=== PATIENT | female | born 1995 | race Caucasian/White ===

== ENCOUNTER 2017-05-12 16:29 | Emergency (ER) | payer BC ==
[2017-05-12 17:12] VITALS: BP 126/68
--- NOTE | 2017-05-12 17:13 | UC ---
Upper Extremity HPI - HPI Summary HPI Summary: 22 year old female presents with ganglion cysts on both wrists. - History of Current Complaint Chief Complaint: UCUpperExtremity Stated Complaint: LEFT WRIST AND PERSONAL Time Seen by Provider: 05/12/17 17:13 Hx Obtained From: Patient Hx Last Menstrual Period: 04/18/17 ?: Yes Onset/Duration: Sudden Onset Severity Initially: Moderate Severity Currently: Moderate Pain Scale Used: 0-10 Numeric - 5 - Allergies/Home Medications Allergies/Adverse Reactions: Allergies Allergy/AdvReac Type Severity Reaction Status Date / Time No Known Allergies Allergy Verified 05/12/17 17:12 PMH/Surg Hx/FS Hx/Imm Hx Other History Of: Negative For: HIV, Hepatitis B, Hepatitis C, Anticoagulant Therapy - Surgical History Surgical History: Yes Surgery Procedure, Year, and Place: I&D right thigh 2013, 2016 - Family History Known Family History: Positive: Cardiac Disease, Hypertension - Social History Alcohol Use: Occasionally Substance Use Type: None Smoking Status (MU): Never Smoked Tobacco Review of Systems Constitutional: Negative Skin: Negative Eyes: Negative ENT: Negative Respiratory: Negative Cardiovascular: Negative Gastrointestinal: Negative Genitourinary: Negative Motor: Negative Neurovascular: Negative Musculoskeletal: Other: - bilateral wrist ganglion Neurological: Negative Psychological: Negative All Other Systems Reviewed And Are Negative: Yes Physical Exam Triage Information Reviewed: Yes Vital Signs: Initial Vital Signs Temp 36.9 C 05/12/17 17:04 Pulse 86 05/12/17 17:04 Resp 12 05/12/17 17:04 BP 126/68 05/12/17 17:04 Pulse Ox 100 05/12/17 17:04 Vital Signs Reviewed: Yes Eye Exam: Normal ENT Exam: Normal Dental Exam: Normal Neck exam: Normal Neck: Positive: 1 Respiratory Exam: Normal Cardiovascular Exam: Normal Abdominal Exam: Normal Musculoskeletal: Positive: Other: - bilateral ganglion cysts Neurological Exam: Normal Psychological Exam: Normal Skin Exam: Normal Upper Extremity Course/Dx - Differential Dx/Diagnosis Provider Diagnoses: bilateral wrist ganglion cysts Discharge - Discharge Plan Condition: Stable Disposition: HOME Prescriptions: Methylprednisolone [Medrol Dosepak 4 MG*] 4 mg PO .SEE ESAU INSTRUCTION #21 tab Patient Education Materials: Ganglion Cysts (ED) Referrals: Constantino Santillan MD [Medical Doctor] - No Primary Care Phys,NOPCP [Primary Care Provider] -
--- NOTE | 2017-05-12 17:52 | RAD ---
INDICATION: Lump on the RIGHT hand for 1.5 years with pain for one week. COMPARISON: No relevant prior exams available on the [facility] PACS for comparison. TECHNIQUE: AP, lateral, and oblique views RIGHT hand. REPORT: Mild soft tissue swelling over the metacarpal phalangeal joints reference the lateral view. Negative for joint space narrowing, osteophytosis, osseous erosions, periarticular osteopenia. Negative for fracture or malalignment. IMPRESSION: Dorsal soft tissue swelling at the level of the metacarpal phalangeal joints without additional radiographic abnormality.
--- NOTE | 2017-05-12 17:53 | RAD ---
INDICATION: Lump for 1.5 years. Pain for one week. COMPARISON: No relevant prior exams available on the [facility] PACS for comparison. TECHNIQUE: AP, lateral, and oblique views LEFT hand. REPORT: Normal articular alignment and preserved joint spaces without arthropathic change. Negative for fracture or malalignment. Unremarkable soft tissue contours. IMPRESSION: Negative exam.
== END 2017-05-12 18:01 | disposition home or self-care (01) ==
LOC: UCCORT 16:29
DX: M67.432 Ganglion, left wrist (principal); M67.431 Ganglion, right wrist
CPT/HCPCS: 99212; G0463

== ENCOUNTER 2017-08-11 16:08 | Emergency (ER) | payer BC ==
--- OUTSIDE RECORDS SUMMARY | 2017-08-11 18:37 | XMS REPORT ---
:1995 External Reference #:[id number] Author Organization [facility] Address [address] [place] [id number] Phone [phone] Care Team Providers Name Role Phone No Primary Care Physician Unavailable Payers Type Date Identification Numbers Payment Provider Subscriber Commercial Policy Number: [id number] Kate Harrison PayID: [id number] [address] [address] [place] [address] Problems Description No Active Problems Family History Date Family Member(s) Problem(s) Comments General Lung Cancer:MGF, MGM Father Alive Father Heart problems Mother Alive Mother No Current Problems Social History Type Date Description Comments Education In college Marital Status Legal Status: Never ETOH Use Currently consumes alcohol Smoking Patient has never smoked Recreational Drug Use Denies Drug Use Recreational Drug Use Teaching provided regarding Naloxone/Narcan Training Available At 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 Procedures Description No Information Plan of Care Future Appointment(s):10/24/2017 9:00 am - [facility] RECRU[facility] at [facility]07/27/2017 - Paula Mercer Danyell, NPZ30.011 Encounter for initial prescription of contraceptive pillsNew Medication:Ortho Tri-Cyclen Lo 0.18 /0.215/0.25 mg-25 mcg0.18Comments: No UPIC since last menses. UPT negatve toiday. Start ocp. Reviewed use of, side effects and precautions with patient who states understanding. Instructed patient to use BUBC for first 7 days of pill and patient states understanding. Patient aware of ECP.Z11.3 Encntr screen for infections w sexl mode of transmissComments:Reviewed STD risks and prevention with patient. Patient states understanding. Condoms given to patient.Z32.02 Encounter for test, result negative
[2017-08-11 18:51] VITALS: BP 119/70
--- NOTE | 2017-08-11 19:29 | UC ---
Throat Pain/Nasal Gennaro HPI - HPI Summary HPI Summary: 22 yo female with about 5 day history of fever/chills/sore throat and marked fatigue no n/v/d - History of Current Complaint Chief Complaint: UCGeneralIllness Stated Complaint: FATIGUE, EAR PAIN, COUGH, ST Time Seen by Provider: 08/11/17 19:03 Hx Obtained From: Patient Hx Last Menstrual Period: 07/22/17 Onset/Duration: Gradual Onset, Lasting Days Severity: Moderate Pain Intensity: 7 Pain Scale Used: 0-10 Numeric Associated Signs & Symptoms: Positive: Fever - Allergies/Home Medications Allergies/Adverse Reactions: Allergies Allergy/AdvReac Type Severity Reaction Status Date / Time No Known Allergies Allergy Verified 08/11/17 18:51 Home Medications: Home Medications Control Pill 1 tab DAILY 08/11/17 [History Confirmed 08/11/17] PMH/Surg Hx/FS Hx/Imm Hx Previously Healthy: Yes Other History Of: Negative For: HIV, Hepatitis B, Hepatitis C, Anticoagulant Therapy - Surgical History Surgical History: Yes Surgery Procedure, Year, and Place: I&D right thigh 2013, 2016. right wrist/ ganglion cyst - Family History Known Family History: Positive: Cardiac Disease, Hypertension - Social History Alcohol Use: Occasionally Substance Use Type: Marijuana Substance Use Comment - Amount & Last Used: occasional Smoking Status (MU): Current Some Day Smoker Review of Systems Constitutional: Fever, Chills, Fatigue Skin: Negative Eyes: Negative ENT: Sore Throat Respiratory: Negative Cardiovascular: Negative Gastrointestinal: Negative Genitourinary: Negative Motor: Negative Neurovascular: Negative Musculoskeletal: Myalgia Neurological: Negative Psychological: Negative Is Patient Immunocompromised?: No All Other Systems Reviewed And Are Negative: Yes Physical Exam Triage Information Reviewed: Yes Appearance: Well-Appearing, No Pain Distress, Well-Nourished Vital Signs: Initial Vital Signs Temp 98.2 F 08/11/17 18:45 Pulse 66 08/11/17 18:45 Resp 15 08/11/17 18:45 BP 119/70 08/11/17 18:45 Pulse Ox 99 08/11/17 18:45 Vital Signs Reviewed: Yes Eyes: Positive: Conjunctiva Clear ENT: Positive: Pharyngeal erythema, Tonsillar swelling, Tonsillar exudate, Uvula midline Neck: Positive: Supple, Nontender, Enlarged Nodes @ - ant/pst Respiratory: Positive: Lungs clear, Normal breath sounds, No respiratory distress Cardiovascular: Positive: RRR Abdomen Description: Positive: Nontender, No Organomegaly. Negative: CVA Tenderness (R), CVA Tenderness (L) Bowel Sounds: Positive: Present Musculoskeletal Exam: Normal Neurological: Positive: Alert Psychological Exam: Normal Diagnostics - Laboratory Diagnostic Studies Completed/Ordered: strep (-) Throat Pain/Nasal Course/Dx - Differential Dx/Diagnosis Provider Diagnoses: pharyngo-tonsillitis. ?mono Discharge - Discharge Plan Condition: Stable Disposition: HOME Patient Education Materials: Mononucleosis (ED), Viral Syndrome (ED) Referrals: No Primary Care Phys,NOPCP [Primary Care Provider] - Additional Instructions: blood work pending your strep test was (-) rest fluids tylenol recheck in 4 days if not better
[2017-08-12 14:31] LABS: ABS Basophils 0 10^3/ul (0-0.2); ABS Eosinophils 0.1 10^3/ul (0-0.6); ABS Lymphocytes 1.7 10^3/ul (1.0-4.8); ABS Monocytes 0.6 10^3/ul (0-0.8); ABS Neutrophils 5.1 10^3/ul (1.5-7.7); ABS Nucleated RBC 0 10^3/ul; Eosinophil % 1.7 % (0-6); Hematocrit 41 % (35-47); Mean Corpuscular HGB Conc 34 g/dl (31-36); Mean Corpuscular Hemoglobin 30 pg (27-31); Mean Corpuscular Volume 87 fL (80-97); Mean Platelet Volume 8 um3 (7.4-10.4); Nucleated Red Blood Cells % 0.1; Platelet Count 315 10^3/ul (150-450); Red Cell Distribution Width 14 % (10.5-15); White Blood Count 7.5 10^3/ul (3.5-10.8)
== END 2017-08-11 19:52 | disposition home or self-care (01) ==
LOC: UCCORT 16:08
DX: J02.9 Acute pharyngitis, unspecified (principal); J03.90 Acute tonsillitis, unspecified; Z87.891 Personal history of nicotine dependence
CPT/HCPCS: 36415; 85025; 86308; 87651; 99211; G0463

== ENCOUNTER 2017-09-19 12:34 | Emergency (ER) | payer BC ==
--- NOTE | 2017-09-19 12:48 | UC ---
Throat Pain/Nasal Gennaro HPI - HPI Summary HPI Summary: cough x 3 days + nasal congestion , sore throat, fever, chills body aches, - History of Current Complaint Chief Complaint: UCRespiratory Stated Complaint: FLU SYMPTOMS Time Seen by Provider: 09/19/17 12:42 Hx Obtained From: Patient Hx Last Menstrual Period: 07/22/17 ?: No Onset/Duration: Gradual Onset, Lasting Days - 3, Still Present Severity: Moderate Cough: Nonproductive Associated Signs & Symptoms: Positive: Nasal Discharge, Fever - Allergies/Home Medications Allergies/Adverse Reactions: Allergies Allergy/AdvReac Type Severity Reaction Status Date / Time No Known Allergies Allergy Verified 09/19/17 12:43 Home Medications: Home Medications NK [No Home Medications Reported] 09/19/17 [History Confirmed 09/19/17] PMH/Surg Hx/FS Hx/Imm Hx Previously Healthy: Yes Other History Of: Negative For: HIV, Hepatitis B, Hepatitis C, Anticoagulant Therapy - Surgical History Surgical History: Yes Surgery Procedure, Year, and Place: I&D right thigh 2013, 2016. right wrist/ ganglion cyst - Family History Known Family History: Positive: Cardiac Disease, Hypertension - Social History Alcohol Use: Occasionally Substance Use Type: Marijuana Substance Use Comment - Amount & Last Used: occasional Smoking Status (MU): Current Some Day Smoker Review of Systems Constitutional: Fever, Chills, Fatigue Skin: Negative Eyes: Negative ENT: Sore Throat, Nasal Discharge Respiratory: Cough Cardiovascular: Negative Gastrointestinal: Negative Genitourinary: Negative Musculoskeletal: Myalgia Neurological: Weakness Is Patient Immunocompromised?: No All Other Systems Reviewed And Are Negative: Yes Physical Exam Triage Information Reviewed: Yes Appearance: Well-Appearing, No Pain Distress, Well-Nourished Vital Signs Reviewed: Yes Eyes: Positive: Conjunctiva Clear ENT: Positive: Normal ENT inspection, Hearing grossly normal, Pharyngeal erythema, Nasal drainage, TMs normal Neck: Positive: Supple, Nontender Respiratory: Positive: Chest non-tender, Lungs clear, Normal breath sounds Cardiovascular: Positive: RRR, No Murmur, Pulses Normal Abdominal Exam: Normal Abdomen Description: Positive: Nontender, Soft Bowel Sounds: Positive: Present Neurological Exam: Normal Skin Exam: Normal Throat Pain/Nasal Course/Dx - Differential Dx/Diagnosis Provider Diagnoses: viral bronchitis Discharge - Sign-Out/Discharge Documenting (check all that apply): Discharge - Discharge Plan Condition: Stable Disposition: HOME Patient Education Materials: Acute Bronchitis (ED) Forms: *School Release, *Work Release Referrals: No Primary Care Phys,NOPCP [Primary Care Provider] - 5 Days - Billing Disposition and Condition Condition: STABLE Disposition: HOME
[2017-09-19 12:49] VITALS: BP 116/59
== END 2017-09-19 13:04 | disposition home or self-care (01) ==
LOC: UCCORT 12:34
DX: J20.8 Acute bronchitis due to other specified organisms (principal); F17.200 Nicotine dependence, unspecified, uncomplicated
CPT/HCPCS: 99211; G0463

== ENCOUNTER 2018-02-14 12:43 | Emergency (ER) | payer BC, OTHER ==
[2018-02-14 13:07] VITALS: BP 125/60
--- NOTE | 2018-02-14 13:07 | UC ---
Skin Complaint HPI - HPI Summary HPI Summary: 23 y/o female presents to the urgent care c/o waking up this morning w/ a rash in her RT forearm. Pt reports it is circular about 2.0cm in size. She is concern about ringworm since there is someone at work w/ ringworm. She also has has 2 episodes of vomiting one last night and 1 today at 1000am. She has decrease appetite w/ fatigue this morning. LMP:02/02/2018. Pt denies fever, urinary symptoms SOB, abdominal pain, diarrhea, chest pain, Hx of tick bites, recent travel or eating outside or Hx of STD's. She is sexually active w/o OCP or protections. - History of Current Complaint Time Seen by Provider: 02/14/18 12:59 Stated Complaint: WC SKIN COMPLAINT RIGHT FOREARM Hx Obtained From: Patient Hx Last Menstrual Period: 02/02/18 ?: No Onset/Duration: Gradual Onset, Lasting Days - 1 day, Still Present Skin Exposure Onset/Duration: Days Ago - 1 Timing: Constant Onset Severity: Mild Current Severity: Mild Pain Intensity: 0 Pain Scale Used: 0-10 Numeric Location: Discrete - RT forearm Character: Pruritus, Redness Aggravating Factor(s): Touch Alleviating Factor(s): Nothing Associated Signs & Symptoms: Positive: Nausea, Vomiting. Negative: Fever, Chills, Hoarseness, Throat Tightening Related History: Possible Reaction to: Environmental Exposure - Allergy/Home Medications Allergies/Adverse Reactions: Allergies Allergy/AdvReac Type Severity Reaction Status Date / Time No Known Allergies Allergy Verified 02/14/18 13:05 Review of Systems Constitutional: Negative Skin: Rash - RT fore arm ENT: Negative Respiratory: Negative Gastrointestinal: Vomiting, Nausea Genitourinary: Negative Motor: Negative Neurovascular: Negative Musculoskeletal: Negative Neurological: Negative Psychological: Negative Is Patient Immunocompromised?: No All Other Systems Reviewed And Are Negative: Yes PMH/Surg Hx/FS Hx/Imm Hx Previously Healthy: Yes - Pt denies PMHX Other History Of: Negative For: HIV, Hepatitis B, Hepatitis C, Anticoagulant Therapy - Surgical History Surgical History: Yes Surgery Procedure, Year, and Place: I&D right thigh 2013, 2017. right wrist/ ganglion cyst - Family History Known Family History: Positive: Cardiac Disease, Hypertension - Social History Occupation: Employed Full-time Lives: With Family Alcohol Use: Occasionally Substance Use Type: Marijuana Substance Use Comment - Amount & Last Used: occasional Smoking Status (MU): Never Smoked Tobacco Physical Exam - Summary Physical Exam Summary: Vital Signs Reviewed: Yes General:Patient is a well developed and nourished female who is sitting comfortable in the examining table. Patient is not in any acute respiratory distress. Eyes: Positive: Conjunctiva Clear - PERRLA, EOMI, fundi grossly normal ENT: Positive: Normal ENT inspection, Hearing grossly normal, Pharynx normal, TMs normal Neck: Positive: Supple, Nontender, No Lymphadenopathy Respiratory: Positive: Chest non-tender, Lungs clear, Normal breath sounds, No respiratory distress Cardiovascular: Positive: RRR,S1 and S2 present, No Murmur, Pulses Normal, Brisk Capillary Refill Abdomen Description: Positive: Nontender, Abd: Flat with no distention. No surface trauma, scars, incisions. hyperactive bowel sounds present in all four quadrants. No tenderness, guarding, rigidity to palpation. No masses palpated, no pulsation in epigastric area. No organomegaly. Negative [place] signs. No periumbilical tenderness. No rebound in the lower quadrants. NT over [place]neys point. Good femoral pulses bilaterally. No hernia noted. No CVAT bilaterally Musculoskeletal: Positive: Strength Intact, ROM Intact, No Edema,FROM in all major joints, no edema, no cyanosis or clubbing. Neuro: Alert and oriented x 3. No acute neurological deficits. Speech is normal. Psychological: WNL Skin: Dry and warm. Positive lateral side of distal forearm w/ a circular erythematous w/ a central point induration, about 2.0cm in size, non tender to palpation, mild swelling, no drainage observed. Triage Information Reviewed: Yes Vital Signs: Initial Vital Signs Temp 98.3 F 02/14/18 13:01 Pulse 90 02/14/18 13:01 Resp 17 02/14/18 13:01 BP 125/60 02/14/18 13:01 Pulse Ox 100 02/14/18 13:01 Course/Dx - Course Course Of Treatment: 23 y/o female presents to the urgent care c/o waking up this morning w/ a rash in her RT forearm. Pt reports it is circular about 2.0cm in size. She is concern about ringworm since there is someone at work w/ ringworm. She also has has 2 episodes of vomiting one last night and 1 today at 1000am. She has decrease appetite w/ fatigue this morning. LMP:02/02/2018. Pt denies fever, urinary symptoms SOB, abdominal pain, diarrhea, chest pain, Hx of tick bites, recent travel or eating outside or Hx of STD's. She is sexually active w/o OCP or protections.Hx obtained. PE: WNL exept for a discrete rash on lateral side of distal Rt forearm, most likely presenting as an inect bite rather than ring wrom on examination. Pt given Zofran PO to alleviate nausea and vomiting. Pt tolerated well medication given by nurse and felt better. UA ordered: trace of leukoesteraces. Urine sent for culture to r/o any abdnomality. Pt denies any vaginal discharge. Pt Rx Bacitracin pint and Zofran to alleviate symptoms. Pt advised to rest, increase fluid intake, eat soft meals. If worsening of symptoms and developing abdominal pain, Pt advised to go immediately to the ER for further management. D/C instructions explained. Pt understood and agreed w/ plan of care. Pt left clinic ambulating. - Differential Diagnoses - Skin Complaint Differential Diagnoses: Cellulitis, Local Allergic Reaction, Poison Kisha, Poison Hi [place], Tinea, Other - insect bite, spider bite or bee sting, gatroenteritis, acute nausea and vomiting - Diagnoses Provider Diagnoses: 1- RT forearm insect bite. 2- Acute nausea and vomiting Discharge - Sign-Out/Discharge Documenting (check all that apply): Patient Departure All imaging exams completed and their final reports reviewed: No Studies - Discharge Plan Condition: Stable Disposition: HOME Prescriptions: Bacitracin OINTMENT* 1 applic TOPICAL BID #1 tube Ondansetron ODT TAB* [Zofran 4 MG Odt TAB*] 4 mg PO Q6H PRN #12 tab.odt PRN Reason: nausea and vomiting Patient Education Materials: Insect Bite or Sting (ED), Acute Nausea and Vomiting (ED) Referrals: [facility] PHYSICIAN REFERRAL [Outside] Additional Instructions: 1- Please increase fluid intake w/ Pedialyte or Gatorade or drinking any fluids. Eat small portions of soft meals. Rest and avoid strenuous exercise. 2-Take Zofran PO as directed to alleviate nausea and vomiting 3-Apply the topical Bacitracin oint in the affected of Rt forearm 4- If he develops fever or severe abdominal pain w/ recurrent episodes of vomiting and diarrhea please go to the ER, otherwise f/u with your PCP if diarrhea not resolving in 3 days - Billing Disposition and Condition Condition: STABLE Disposition: Home
[2018-02-14] MEDS ORDERED: Ondansetron ODT TAB* 4 MG PO ONE (13:30)
--- NOTE | 2018-02-15 07:50 | UC ---
Discharge - Sign-Out/Discharge Documenting (check all that apply): Post-Discharge Follow Up All imaging exams completed and their final reports reviewed: No Studies - Discharge Plan Condition: Stable Disposition: HOME Prescriptions: Bacitracin OINTMENT* 1 applic TOPICAL BID #1 tube Ondansetron ODT TAB* [Zofran 4 MG Odt TAB*] 4 mg PO Q6H PRN #12 tab.odt PRN Reason: nausea and vomiting Patient Education Materials: Insect Bite or Sting (ED), Acute Nausea and Vomiting (ED) Referrals: [facility] PHYSICIAN REFERRAL [Outside] Additional Instructions: 1- Please increase fluid intake w/ Pedialyte or Gatorade or drinking any fluids. Eat small portions of soft meals. Rest and avoid strenuous exercise. 2-Take Zofran PO as directed to alleviate nausea and vomiting 3-Apply the topical Bacitracin oint in the affected of Rt forearm 4- If he develops fever or severe abdominal pain w/ recurrent episodes of vomiting and diarrhea please go to the ER, otherwise f/u with your PCP if diarrhea not resolving in 3 days - Billing Disposition and Condition Condition: STABLE Disposition: Home
== END 2018-02-14 14:16 | disposition home or self-care (01) ==
LOC: UCCORT 12:43
DX: S50.861A Insect bite (nonvenomous) of right forearm, initial encounter (principal); W57.XXXA Bitten or stung by nonvenomous insect and other nonvenomous arthropods, initial encounter; Y93.9 Activity, unspecified; Y92.9 Unspecified place or not applicable; R11.2 Nausea with vomiting, unspecified
CPT/HCPCS: 81003; 84702; 87086; 99212; A9270-GY; G0463

== ENCOUNTER 2018-07-15 13:18 | Emergency (ER) | payer BC, OTHER ==
[2018-07-15 13:27] VITALS: BP 148/74
--- NOTE | 2018-07-15 13:31 | UC ---
Throat Pain/Nasal Gennaro HPI - HPI Summary HPI Summary: 23-year-old female presents with 2 day history of nasal congestion, clear nasal drainage, sinus congestion, bilateral ear pain, sore throat, nonproductive cough , and 1 episode of posttussive emesis. States her roommate was recently ill with similar symptoms. Denies fever, chills, dysphagia, chest pain, shortness of breath, abdominal pain, or diarrhea. - History of Current Complaint Chief Complaint: UCGeneralIllness Stated Complaint: CONGESTION Time Seen by Provider: 07/15/18 13:24 Hx Obtained From: Patient Hx Last Menstrual Period: 07/10/18 Pain Intensity: 0 - Allergies/Home Medications Allergies/Adverse Reactions: Allergies Allergy/AdvReac Type Severity Reaction Status Date / Time No Known Allergies Allergy Verified 07/15/18 13:25 Home Medications: Home Medications NK [No Home Medications Reported] 07/15/18 [History Confirmed 07/15/18] PMH/Surg Hx/FS Hx/Imm Hx Previously Healthy: Yes - Denies significant PMH Other History Of: Negative For: HIV, Hepatitis B, Hepatitis C, Anticoagulant Therapy - Surgical History Surgical History: Yes Surgery Procedure, Year, and Place: I&D right thigh 2013, 2017. right wrist/ ganglion cyst - Family History Known Family History: Positive: Cardiac Disease, Hypertension - Social History Occupation: Employed Full-time Lives: With Family Alcohol Use: Occasionally Substance Use Type: None Substance Use Comment - Amount & Last Used: occasional Smoking Status (MU): Never Smoked Tobacco Review of Systems All Other Systems Reviewed And Are Negative: Yes Constitutional: Negative: Fever, Chills Skin: Negative: Rash Eyes: Negative: Drainage, Eye Redness ENT: Positive: Sore Throat, Ear Ache, Nasal Discharge, Sinus Congestion. Negative: Sinus Pain/Tenderness Respiratory: Positive: Cough. Negative: Shortness Of Breath Cardiovascular: Negative: Palpitations, Chest Pain Gastrointestinal: Positive: Vomiting. Negative: Abdominal Pain, Diarrhea, Nausea Genitourinary: Positive: Negative Musculoskeletal: Positive: Negative Neurological: Positive: Negative Is Patient Immunocompromised?: No Physical Exam - Summary Physical Exam Summary: GENERAL APPEARANCE: Well developed, well nourished, alert and cooperative, and appears to be in no acute distress. EYES: Conjunctiva clear. No drainage. Vision is grossly intact. EARS: External auditory canals and tympanic membranes clear, hearing grossly intact. NOSE:Moderate to severe nasal congestion with mucosal erythema and edema. Clear nasal discharge. THROAT: Mild pharyngeal erythema with cobblestoning. Tonsils 1+ without exudate or lesions. Oral cavity normal.Teeth and gingiva in good general condition. NECK: Neck supple, non-tender without lymphadenopathy. CARDIAC: Normal S1 and S2. No S3, S4 or murmurs. Rhythm is regular. There is no peripheral edema, cyanosis or pallor. Extremities are warm and well perfused. Capillary refill is less than 2 seconds. LUNGS: Clear to auscultation without rales, rhonchi, wheezing or diminished breath sounds. ABDOMEN: Positive bowel sounds. Soft, nondistended, nontender. No guarding or rebound. No masses or hepatosplenomegally. MUSKULOSKELETAL: ROM intact to all extremities. No joint erythema or tenderness. Normal muscular development. Normal gait. SKIN: Skin normal color, texture and turgor with no lesions or eruptions. Triage Information Reviewed: Yes Vital Signs: Initial Vital Signs Temp 97.2 F 07/15/18 13:25 Pulse 91 07/15/18 13:25 Resp 17 07/15/18 13:25 BP 148/74 07/15/18 13:25 Pulse Ox 98 07/15/18 13:25 Vital Signs Reviewed: Yes Diagnostics - Laboratory Diagnostic Studies Completed/Ordered: Rapid flu negative Throat Pain/Nasal Course/Dx - Course Course Of Treatment: 23-year-old female presents with 2 day history of nasal congestion, clear nasal drainage, sinus congestion, bilateral ear pain, sore throat, nonproductive cough, and 1 episode of posttussive emesis. States her roommate was recently ill with similar symptoms. Denies fever, chills, dysphagia, chest pain, shortness of breath, abdominal pain, or diarrhea. Afebrile. Mildly elevated blood pressure otherwise vital signs stable. Exam revealed clear to female in no acute distress. Moderate to severe nasal congestion with clear nasal discharge, mild pharyngeal erythema with cobblestoning, tonsils 1+ without exudate, occasional nonproductive cough with clear bilateral breath sounds. Remainder of exam is unremarkable. Rapid flu was negative. Suspect viral upper respiratory infection. Recommending symptomatic treatment. She is to follow-up with primary care provider in one week if symptoms do not improve. Warning symptoms were reviewed with the patient. She verbalizes understanding and agrees with plan of care. - Differential Dx/Diagnosis Differential Diagnosis/HQI/PQRI: Influenza, Mononucleosis, Otitis Media, Pharyngitis, Sinusitis, Tonsillitis, URI Provider Diagnosis: Viral upper respiratory infection Discharge - Sign-Out/Discharge Documenting (check all that apply): Patient Departure All imaging exams completed and their final reports reviewed: No Studies - Discharge Plan Condition: Stable Disposition: HOME Patient Education Materials: Upper Respiratory Infection (ED) Referrals: No Primary Care Phys,NOPCP [Primary Care Provider] - Additional Instructions: The rapid flu test performed in the clinic today was negative. Your history and exam are consistent with a viral upper respiratory infection. Viral infections do not respond to antibiotics and are limited to the treatment of symptoms. Viral infections typically run their course in 7-10 days. Drink plenty of fluids to avoid dehydration especially if you are running any fever. Use a saline rinse kit such as Neti Pot or NeilMed at least twice a day to help thin secretions and promote drainage of the sinuses. Use fluticasone (Flonase) nasal spray 2 sprays each nostril once daily. Take an over the counter decongestant such as Sudafed according to directions to help relieve the congestion. Take over the counter acetaminophen (Tylenol) or ibuprofen (Advil, Motrin) according to directions as needed for pain or fever. Use salt water gargles several times a day if you have a sore throat. You may also use Chloraseptic spray or Cepacol lonzenges according to directions which contain a numbing medication and can provide some temporary relief from your sore throat. Follow up with your primary care provider in 7 dyas if symptoms persist. Seek immediate medical attention in the emergency room if you have fever greater than 100.5 F despite taking acetaminophen or ibuprofen, have chest pain , difficulty breathing, are unable to swallow, or have any worsening of symptoms. - Billing Disposition and Condition Condition: STABLE Disposition: Home
== END 2018-07-15 13:54 | disposition home or self-care (01) ==
LOC: UCCORT 13:18
DX: J06.9 Acute upper respiratory infection, unspecified (principal); H92.03 Otalgia, bilateral; R11.10 Vomiting, unspecified; R03.0 Elevated blood-pressure reading, without diagnosis of hypertension
CPT/HCPCS: 99211; G0463

== ENCOUNTER 2019-05-05 09:45 | Emergency (ER) | payer BC ==
[2019-05-05 10:07] VITALS: BP 110/69
[2019-05-05] MEDS ORDERED: Fluorescein Sodium TOPICAL* 1 MG TEST STRIP OPHTHALMIC ONE (10:36)
--- NOTE | 2019-05-05 11:01 | UC ---
Eye Complaint HPI - HPI Summary HPI Summary: 24 year old female presents with complaint of left eye irritation, mild discomfort and drainage for the past two days. Denies associated fever nor chills. States vision may be a little blurrier than usual, no double vision. - History of Current Complaint Chief Complaint: UCEye Stated Complaint: LEFT EYE COMPLAINT Time Seen by Provider: 05/05/19 10:36 Hx Last Menstrual Period: 03/30/19 Onset/Duration: Lasting Days - two Timing: Constant Pain Intensity: 7 Character: Throbbing Associated Signs And Symptoms: Positive: Drainage (Clear). Negative: Photophobia, Vision Impairment Bilateral, Fever, Swelling - Risk Factors Penetrating Injury Risk Factor: Negative Globe Rupture Risk Factors: Negative Acute Glaucoma Risk Factors: Negative - Allergies/Home Medications Allergies/Adverse Reactions: Allergies Allergy/AdvReac Type Severity Reaction Status Date / Time No Known Allergies Allergy Verified 05/05/19 10:01 PMH/Surg Hx/FS Hx/Imm Hx Previously Healthy: Yes Other History Of: Negative For: HIV, Hepatitis B, Hepatitis C, Anticoagulant Therapy - Surgical History Surgical History: Yes Surgery Procedure, Year, and Place: I&D right thigh 2013, 2017. right wrist/ ganglion cyst - Family History Known Family History: Positive: Cardiac Disease, Hypertension - Social History Occupation: Employed Full-time Alcohol Use: Occasionally Substance Use Type: Marijuana Substance Use Comment - Amount & Last Used: socially Smoking Status (MU): Never Smoked Tobacco Review of Systems All Other Systems Reviewed And Are Negative: Yes Constitutional: Negative: Fever, Chills, Fatigue Skin: Negative: Rash, Bruising Eyes: Positive: Drainage, Other - wears contacts. Negative: Eye Redness, Photophobia ENT: Positive: Nasal Discharge. Negative: Epistaxis, Sore Throat, Ear Ache, Sinus Congestion Respiratory: Negative: Shortness Of Breath, Cough Cardiovascular: Positive: Negative Gastrointestinal: Positive: Negative Genitourinary: Positive: Negative Motor: Positive: Negative Neurovascular: Positive: Negative Musculoskeletal: Positive: Negative Neurological: Positive: Negative Is Patient Immunocompromised?: No Physical Exam Triage Information Reviewed: Yes Appearance: Well-Appearing, No Pain Distress Vital Signs: Initial Vital Signs Temp 97.6 F 05/05/19 10:01 Pulse 85 05/05/19 10:01 Resp 18 05/05/19 10:01 BP 110/69 05/05/19 10:01 Pulse Ox 99 05/05/19 10:01 Eyes: Positive: Discharge - clear, Other: - fluorescein stain shows no corneal abrasion, irritation of lower scrlera identified. No injection. EOMI. Respiratory Exam: Normal Cardiovascular: Positive: RRR, No Murmur Abdomen Description: Positive: Nontender, Soft Musculoskeletal Exam: Normal Neurological Exam: Normal Psychological Exam: Normal Skin Exam: Normal Eye Complaint Course/Dx - Differential Dx/Diagnosis Differential Diagnosis/HQI/PQRI: Conjunctivitis Provider Diagnosis: Abrasion of sclera of left eye Discharge ED - Sign-Out/Discharge Documenting (check all that apply): Patient Departure All imaging exams completed and their final reports reviewed: No Studies - Discharge Plan Condition: Stable Disposition: HOME Prescriptions: Polymyx/Trimethoprim OPTH* [Polytrim OPHTH*] 1 drop LEFT EYE QID 7 Days #1 btl Referrals: No Primary Care Phys,NOPCP [Primary Care Provider] - Additional Instructions: Apply eye drops 4 times/day for the next week. Take ibuprofen over the counter as needed for pain. If symptoms persist or worsen, follow up with your eye doctor. - Billing Disposition and Condition Condition: STABLE Disposition: Home
== END 2019-05-05 11:25 | disposition home or self-care (01) ==
LOC: UCCORT 09:45
DX: S05.02XA Injury of conjunctiva and corneal abrasion without foreign body, left eye, initial encounter (principal); X58.XXXA Exposure to other specified factors, initial encounter; Y92.9 Unspecified place or not applicable
CPT/HCPCS: 99212; A9270-GY; G0463